=== PATIENT | male | born 1990 | race Caucasian/White ===

== ENCOUNTER 2022-08-12 21:29 | Emergency (ER) | payer OTHER ==
[~2022-08-12] VITALS: Ht 180.3 cm; Wt 70.3 kg
--- NOTE | 2022-08-12 21:29 | NUR ---
PT BIB [facility], PREBOOK. TAKEN TO ER CHAIR
[2022-08-12 21:32] VITALS: BP 130/79
[2022-08-12 21:37] VITALS: BP 130/79
--- NOTE | 2022-08-12 22:04 | NUR ---
Dr. Jiang examining patient.
--- NOTE | 2022-08-12 22:04 | NUR ---
SEEN AND EXAMINED BY HERMELINDO
--- NOTE | 2022-08-12 22:13 | NUR ---
PT MOVED TO ER BED 10
--- NOTE | 2022-08-12 22:23 | NUR ---
X-Ray at bedside.
--- NOTE | 2022-08-12 22:35 | NUR ---
Patient discharged with v/s stable. Written and verbal after care instructions given and explained. Patient verbalized understanding. Ambulatory with in custody. All questions addressed prior to discharge. Advised to follow up with PMD.
== END 2022-08-12 22:35 ==
LOC: MED 21:29
DX: Z02.89 Encounter for other administrative examinations (principal); V89.2XXA Person injured in unspecified motor-vehicle accident, traffic, initial encounter; Y93.89 Activity, other specified; Y92.410 Unspecified street and highway as the place of occurrence of the external cause; Y99.8 Other external cause status
CPT/HCPCS: 99283